=== PATIENT | female | born 1980 | race Caucasian/White ===

== ENCOUNTER 2019-05-03 06:28 | Day surgery (SDC) | payer OTHER ==
[~2019-05-03] VITALS: Ht 160 cm; Wt 70.3 kg
[2019-05-03] MEDS ORDERED: MIDAZOLAM 2 MG/2 ML VIAL ONE (07:59)
[2019-05-03] MEDS ORDERED: fentaNYL 0.05 MG/ML VIAL ONE (07:59)
== END 2019-05-03 09:45 | disposition home or self-care (01) ==
LOC: MDS 06:28 → MMU 06:29 → MDS 09:45
PROVIDERS: ATTEND Internal Medicine Gastroenterology
DX: R13.10 Dysphagia, unspecified (principal); R10.30 Lower abdominal pain, unspecified; Z88.1 Allergy status to other antibiotic agents; Z88.2 Allergy status to sulfonamides; Z88.6 Allergy status to analgesic agent; Z91.048 Other nonmedicinal substance allergy status
CPT/HCPCS: 36415; 43239; 81025; 86677; J2250; J7030; J3010